=== PATIENT | male | born 1995 | race Two or more races ===

== ENCOUNTER 2022-01-24 19:30 | Emergency (ER) | payer SELFPAY ==
[2022-01-24] MEDS ORDERED: Diphtheria,Pertussis(Acell),Tetanus Vaccine 0.5 ML Syringe IM ONE (19:53)
== END 2022-01-24 21:00 | disposition home or self-care (01) ==
LOC: JD.ED 19:30
DX: S71.132A Puncture wound without foreign body, left thigh, initial encounter (principal); L03.116 Cellulitis of left lower limb; Z23 Encounter for immunization; W26.8XXA Contact with other sharp object(s), not elsewhere classified, initial encounter; Y99.0 Civilian activity done for income or pay
CPT/HCPCS: 36415; 80053; 85025; 86140; 90471; 90715; 99283

== ENCOUNTER 2022-04-01 15:51 | Emergency (ER) | payer SELFPAY ==
[2022-04-01] MEDS ORDERED: Sodium Chloride 0.9% 10 ML Syringe FLUSH PRN (16:23)
[2022-04-01] MEDS ORDERED: LORazepam 2 MG/ML SDV IM ONE (16:55)
[2022-04-01] MEDS ORDERED: Sodium Chloride 0.9% 1,000 ML IV ONE (17:22)
[2022-04-01 17:41] LABS: ACETAMINOPHEN 0 ug/mL (10-30)
[2022-04-01] MEDS ORDERED: OLANZapine 10 MG Vial IM ONE (17:43)
== END 2022-04-01 19:45 ==
LOC: JD.ED 15:51
DX: F15.10 Other stimulant abuse, uncomplicated (principal); F14.10 Cocaine abuse, uncomplicated; J45.909 Unspecified asthma, uncomplicated; Z79.899 Other long term (current) drug therapy
CPT/HCPCS: 36415; 80053; 80143; 80179; 80306; 80307; 85025; 93005; 96360; 96372; 99285; J2060; J3490; J7030

== ENCOUNTER 2022-06-13 20:14 | Emergency (ER) | payer SELFPAY ==
[2022-06-13] MEDS ORDERED: Albuterol/Ipratropium 3.0-0.5 MG/3 ML Neb Soln NEB ONE ×3 (20:34→21:40)
[2022-06-13] MEDS ORDERED: Ketorolac 15 MG/ML SDV IM STA (20:34)
[2022-06-13] MEDS ORDERED: predniSONE 20 MG Tab PO ONE (20:35)
== END 2022-06-13 22:22 | disposition home or self-care (01) ==
LOC: JD.ED 20:14
DX: J45.901 Unspecified asthma with (acute) exacerbation (principal); Z79.899 Other long term (current) drug therapy
CPT/HCPCS: 94640; 96372; 99284; J1885; J7512; J7620-GY

== ENCOUNTER 2022-06-14 22:17 | Emergency (ER) | payer SELFPAY | END 2022-06-14 23:45 | LOC: JD.ED 22:17 | DX: Z53.21 Procedure and treatment not carried out due to patient leaving prior to being seen by health care provider (principal) ==

== ENCOUNTER 2022-06-19 23:05 | Emergency (ER) | payer SELFPAY ==
[2022-06-19] MEDS ORDERED: Clindamycin HCl 150 MG Cap PO ONE (23:58)
[2022-06-19] MEDS ORDERED: Acetaminophen/HYDROcodone 325-5 MG Tab PO ONE (23:58)
== END 2022-06-20 00:19 | disposition home or self-care (01) ==
LOC: JD.ED 23:05
DX: K04.7 Periapical abscess without sinus (principal)
CPT/HCPCS: 99282; A9270; 99283